=== PATIENT | female | born 1935 | race Caucasian/White ===

== ENCOUNTER 2023-12-26 15:40 | Emergency (ER) | payer OTHER ==
[~2023-12-26] VITALS: Ht 157.5 cm; Wt 70.3 kg
[2023-12-26 15:54] VITALS: BP_SYST 106; PULSE 72; RESP 18; TEMP 98.3; O2SAT 96
[2023-12-26 19:02] LABS: BASOPHILS # (AUTO) 0.1 K/uL (0.0-0.2); BASOPHILS % (AUTO) 0.8 % (0.0-2.0); EOSINOPHILS # (AUTO) 0.1 K/uL (0.0-0.4); EOSINOPHILS % (AUTO) 0.5 % (0.0-4.0); HEMATOCRIT 35.8 % (36-48); HEMOGLOBIN 11.5 g/dL (12.0-16.0); LYMPHOCYTES # (AUTO) 1.1 K/uL (1.0-5.5); MEAN CORPUSCULAR HEMOGLOBIN 29 pg (27-31); MEAN CORPUSCULAR HGB CONC 32 % (32-36); MEAN CORPUSCULAR VOLUME 90 fL (79.0-98.0); MONOCYTES # (AUTO) 0.6 K/uL (0.0-1.0); MONOCYTES % (AUTO) 5.3 % (1.7-9.3); NEUTROPHILS # (AUTO) 9.9 K/uL (1.8-7.7); NEUTROPHILS % (AUTO) 84.4 % (40.0-70.0); PLATELET COUNT (AUTO) 275 K/uL (130-430); RED BLOOD CELL COUNT(AUTO) 3.96 MIL/uL (4.2-6.2); RED CELL DISTRIBUTION WIDTH 16.7 % (9.0-15.0); WHITE BLOOD COUNT (AUTO) 11.8 K/uL (4.8-10.8)
[2023-12-26 19:09] LABS: ANION GAP 7 (5-15); CALCIUM 8.8 mg/dL (8.4-11.0); CARBON DIOXIDE 26 mmol/L (23-29); CHLORIDE 103 mmol/L (98-107); CREATININE 1.01 mg/dL (0.55-1.30); GLUCOSE 81 mg/dL (74-106); POTASSIUM 4.2 mmol/L (3.5-5.1); SODIUM SERUM 136 mmol/L (136-145); UREA NITROGEN, BLOOD 20 mg/dL (8-21)
[2023-12-26 21:16] LABS: BLOOD, URINE NEGATIVE (NEGATIVE); CLARITY/URINE CLEAR (CLEAR); COLOR,URINE YELLOW (YELLOW); GLUCOSE,URINE NEGATIVE (NEGATIVE); KETONES,URINE NEGATIVE (NEGATIVE); LEUKOCYTE ESTERASE ,URINE NEGATIVE (NEGATIVE); NITRITE, URINE NEGATIVE (NEGATIVE); PH,URINE 5.5 (5.0-8.0); PROTEIN URINE NEGATIVE (NEGATIVE)
[2023-12-26 21:24] LABS: BILIRUBIN,URINE 1+ (NEGATIVE)
[2023-12-26] MEDS: NACL 0.9% 1,000 ML IV ONE (21:55)
[2023-12-26] MEDS ORDERED: NIFE-76 PO (23:01)
[2023-12-26] MEDS ORDERED: METO-304 PO (23:01)
[2023-12-26] MEDS ORDERED: TRAZ-250 PO (23:01)
[2023-12-26] MEDS ORDERED: PARO30TA62 PO (23:01)
[2023-12-26] MEDS ORDERED: LORA-258 (23:01)
[2023-12-26] MEDS ORDERED: MEMA5TAB16 PO (23:01)
[2023-12-26] MEDS ORDERED: ASPI-1077 PO (23:01)
[2023-12-26] MEDS ORDERED: ATOR10TA68 PO (23:01)
[2023-12-26] MEDS ORDERED: VITD2000 PO (23:01)
[2023-12-26] MEDS ORDERED: PANT40TA45 PO (23:01)
[2023-12-27 05:27] VITALS: BP_SYST 134; PULSE 85; RESP 20; TEMP 98.5; O2SAT 94
== END 2023-12-27 04:04 | disposition short-term general hospital (02) ==
LOC: SED 15:40 → EDBD 15:40 → SMU 12-27 02:00 → UNDOADMIN 12-27 02:00 → SMU 12-27 04:04 → UNDODISIN 12-27 05:27
DX: R62.7 Adult failure to thrive (principal); R53.1 Weakness; Z88.8 Allergy status to other drugs, medicaments and biological substances; Z79.899 Other long term (current) drug therapy; Z79.2 Long term (current) use of antibiotics
CPT/HCPCS: 80048; 81001; 83880; 85025; 84484; 36415; 93005; 99285; 96360; 96361; 81003; 82948; J7030